=== PATIENT | female | born 1960 | race Caucasian/White ===

== ENCOUNTER → 2016-07-14 | Outpatient (CLI) | payer OTHER ==
[~2016-07-14] MED LIST: ADVAIR 1001 DISK W/D PO; ADVIL200 M1; ALBUTEROL17 GM INH; ALPRAZOLAM; ALPRAZOLAM PO; ASCORBIC ACID500 M2 PO; AUGMENTIN PO; BACTRIM DS TABL1 TA2 PO; BENADRYL25 M3 PO; CALCIUM 1,0001 EACH PO; CALCIUM 600 + D1 TAB PO; CARAFATE PO; CARAFATE1 GM PO; CELEXA10 MG PO; CELEXA20 M1 PO; CELEXA20 MG PO; DEXILANT60 MG PO; DISCONTINUED MED; ESTRACE PO; FERROUS SULFATE PO; FLEXERIL PO; FOLIC ACID PO; FOLIC ACID1 MG PO; HYDROCODONE/APA1 T16 PO; IRON1 TAB PO; KEFLEX PO; KEFLEX500 M1 PO; LANSOPRAZOLE30 MG PO; LEVAQUIN PO; LEXAPRO PO; LEXAPRO20 MG PO; MEDROL DOSEPAK4 MG PO; METOPROLOL TAR25 MG PO; MUCINEX; MULTI VITAMIN1 EACH PO; MULTI-DAY1 TAB PO; MULTI-VITAMIN1 TAB; NEPHROCAPS1 CAP DOB; NORCO 10/3251 TAB PO; PANTOPRAZOLE SO40 MG PO; PHENERGAN25 M1 PO; PHENERGAN25 MG PO; PREMARIN; PREVACID; PREVACID PO; PRILOSEC20 MG PO; PROMETHAZINE D118 ML PO; REGLAN10 MG PO; REQUIP0.5 MG; ROPINIROLE HCL0.5 MG PO; SYMBICORT INH; TESSALON PERLE100 M1 PO; TUSSIONEX PENN473 ML PO; ULTRAM PO; VENTOLIN5 MG/ML; VENTOLIN5 MG/ML IH; VITAMIN B-121000 MCG PO; VITAMIN C100 MG PO; ZINC SULFATE PO; ZOLPIDEM TARTRAT5 MG PO; [UNRECOGNIZED DRUG - REMARK]
[2016-07-14 11:48] LABS: HEMATOCRIT 37.7 % (35.0-45.0); HEMOGLOBIN 12.3 gm/dL (12.0-16.0); MEAN CELL VOLUME 81.4 FL (83-96); MEAN CORPUSCULAR HEMOGLOBIN 26.6 PG (28-34); MEAN CORPUSCULAR HGB CONC 32.7 g/dL (30-36); MEAN PLATELET VOLUME 7.8 FL (6.5-11.5); RED BLOOD COUNT 4.63 X10e (3.90-5.30); WHITE BLOOD COUNT 10.3 X10e3 (4.0-10.5)
[2016-07-14 12:15] LABS: ALBUMIN SERUM 3.1 g/dL (3.5-5.0); ALKALINE PHOSPHATASE 249 U/L (32-92); ALT (SGPT) 75 U/L (10-40); AST (SGOT) 16 U/L (10-42); BILIRUBIN,TOTAL 0.2 mg/dL (0.2-2.0); BLOOD UREA NITROGEN 19 mg/dL (9-23); CALCIUM SERUM 9.7 mg/dL (8.4-10.2); CARBON DIOXIDE 25 mmol/L (22-31); CHLORIDE 105 mmol/L (100-111); CREATININE SERUM 0.5 mg/dL (0.6-1.4); GLOM FILT RATE Estimated ABOVE60 mL/min (>60); GLUCOSE FASTING 76 mg/dL (70-110); POTASSIUM 4.4 mmol/L (3.5-5.1); PROTEIN TOTAL SERUM 7.3 g/dL (6.0-8.3); SODIUM 141 mmol/L (135-145)
== END | disposition home or self-care (01) ==
LOC: CAMB 09:43
PROVIDERS: Surgery
DX: Z01.812 Encounter for preprocedural laboratory examination (principal); S31.109A Unspecified open wound of abdominal wall, unspecified quadrant without penetration into peritoneal cavity, initial encounter
CPT/HCPCS: 36415; 80053; 85027

== ENCOUNTER → 2016-07-21 | Day surgery (SDC) | payer OTHER ==
--- NOTE | ~2016-07-21 | OR ---
Unit #: [id number] #: [id number] Patient: ROZ ROGERS [id number] [address] [place], [place] [address] [id number] MR#: [id number] NAME: ROZ ROGERS ROOM: Date of Procedure: 07/21/2016 Admission Date: 07/21/2016 Surgeon: Seth Dalton Jr., M.D. : 1960 Attending Physician: Seth Dalton Jr., M.D. Referring Physician: Seth Dalton Jr., M.D. OPERATIVE REPORT INDICATIONS FOR PROCEDURE The patient is a 56-year-old white female, who has previously had a vagotomy and antrectomy at least 3 to 4 months ago and has had intermittent problems with small sinus tracts draining in the central portion of her wound. The wound was probed and did have tract underneath it compatible with a small cavity and it was felt that she needed this opened and explored. She is brought in this time for this procedure under general anesthesia. She understands the procedure including the risks, including that of bleeding and poor healing and consents. PREOPERATIVE DIAGNOSIS Chronic infected wound. POSTOPERATIVE DIAGNOSIS Stitch abscess with small silk within the base of the wound and a small cavity approximately 3 to 4 cm in diameter. ANESTHESIA General with LMA. PROCEDURE PERFORMED Incision and drainage and sharp excisional debridement with removal of the silk stitch. This was done with a #10 blade scalpel. Also, cultures were sent. DESCRIPTION OF PROCEDURE The patient was positioned in the supine position. After being anesthetized, she was prepped and draped in routine fashion for incision and drainage of the central portion of her wound. The small sinus tract that was open was tunneling downward and the incision was opened down in the direction of the tunnel and down to the second sinus. There was thickened scar tissue at the base as well as a silk stitch. The stitch was removed and the chronic indurated tissue was excised with a #10 blade scalpel with sharp excisional debridement. After this was performed, the wound was irrigated and hemostasis was achieved with Bovie cautery and noting no evidence of any further foreign material within the wound. It was packed open with saline moist dry dressings. Sterile dressings were applied externally. Estimated blood loss minimal, less than 20 mL. The patient received less than 1000 mL crystalloid solution during the procedure. Sponges and instruments counts were correct x3. No drains were used. No complications. The patient was taken to the recovery room with stable vital signs in satisfactory condition. Unit #: [id number] #: [id number] Patient: ROZ ROGERS Dictated by... Seth Dalton Jr., MDinesh MANN/mohini TD: 07/22/2016 02:00 JOB #: [id number] OPERATIVE REPORT X Seth Dalton MD X PROCEDURE OPERATIVE NOTE
== END | disposition home or self-care (01) ==
LOC: CSUR 09:32
DX: T81.4XXA Infection following a procedure, initial encounter (principal); J32.9 Chronic sinusitis, unspecified; I34.0 Nonrheumatic mitral (valve) insufficiency; M19.90 Unspecified osteoarthritis, unspecified site; J44.9 Chronic obstructive pulmonary disease, unspecified; K21.9 Gastro-esophageal reflux disease without esophagitis; F17.210 Nicotine dependence, cigarettes, uncomplicated; Z79.899 Other long term (current) drug therapy; Z87.01 Personal history of pneumonia (recurrent); Z87.442 Personal history of urinary calculi; Z90.710 Acquired absence of both cervix and uterus; Z90.49 Acquired absence of other specified parts of digestive tract; Z98.890 Other specified postprocedural states; Z88.1 Allergy status to other antibiotic agents; Z87.440 Personal history of urinary (tract) infections; Z83.3 Family history of diabetes mellitus; Z82.49 Family history of ischemic heart disease and other diseases of the circulatory system; Z80.0 Family history of malignant neoplasm of digestive organs
CPT/HCPCS: 87070; 87075; 87205; J2250; J2270; J2405; J2543; J2765; J3010